=== PATIENT | female | born 1995 | race Caucasian/White ===

== ENCOUNTER 2017-11-17 14:58 | Emergency (ER) | payer SELFPAY | END 2017-11-17 19:35 | disposition home or self-care (01) | LOC: D.ER 14:58 | DX: S16.1XXA Strain of muscle, fascia and tendon at neck level, initial encounter (principal); V73.6XXA Passenger on bus injured in collision with car, pick-up truck or van in traffic accident, initial encounter; Y93.89 Activity, other specified; Y92.410 Unspecified street and highway as the place of occurrence of the external cause; S29.012A Strain of muscle and tendon of back wall of thorax, initial encounter; M25.511 Pain in right shoulder; M54.2 Cervicalgia ==